=== PATIENT | male | born 1995 | race Caucasian/White ===

== ENCOUNTER 2021-06-15 04:55 | Emergency (ER) | payer SELFPAY ==
[~2021-06-15] VITALS: Ht 182.9 cm; Wt 127.3 kg
[~2021-06-15 04:55] MED LIST: ALBU17AE27 IH
[2021-06-15] MEDS ORDERED: ACETAMINOPHEN 500 MG TABLET PO ONE (05:00)
[2021-06-15 07:30] VITALS: BP 151/89
[2021-06-15] MEDS ORDERED: LIDOCAINE 2% 5 ML JELLY TP ONE (07:30)
== END 2021-06-15 07:43 | disposition home or self-care (01) ==
LOC: EMS 05:04
DX: S09.90XA Unspecified injury of head, initial encounter (principal); F12.90 Cannabis use, unspecified, uncomplicated; V43.02XA Car driver injured in collision with other type car in nontraffic accident, initial encounter; W22.11XA Striking against or struck by driver side automobile airbag, initial encounter; Y93.89 Activity, other specified; Y92.89 Other specified places as the place of occurrence of the external cause; Y99.8 Other external cause status
CPT/HCPCS: 70450; 70486; 72125; 99284